=== PATIENT | female | born 1960 | race Caucasian/White ===

== ENCOUNTER 2020-03-22 07:27 | Day surgery (SDC) | payer OTHER, SELFPAY ==
[~2020-03-22] VITALS: Ht 160 cm; Wt 79.8 kg
[2020-03-22 07:59] VITALS: BP 137/75
[2020-03-22 14:40] VITALS: BP 133/63
== END 2020-03-22 14:35 | disposition home or self-care (01) ==
LOC: DS 07:27 → OR 08:30 → DS 08:30
PROVIDERS: ATTEND Surgery
DX: K92.1 Melena (principal); K92.2 Gastrointestinal hemorrhage, unspecified; D12.0 Benign neoplasm of cecum; Z79.82 Long term (current) use of aspirin
CPT/HCPCS: 45378; J1200; J1610; J2250; J2310; J2405; J3010; J3490